=== PATIENT | female | born 1980 | race Caucasian/White ===

== ENCOUNTER → 2020-11-14 17:09 | Outpatient (CLI) | payer OTHER, SELFPAY ==
--- NOTE | ~2020-11-14 | MM_ITS ---
EXAMINATION: MM screening fiona BI w alondra HISTORY: Screening TECHNIQUE: Craniocaudal and mediolateral oblique 3-D tomosynthesis images were obtained and synthetic 2-D images were generated. CAD analysis was submitted and interpreted. COMPARISON: No prior mammogram is available for comparison at this institution. BREAST PARENCHYMAL COMPOSITION: The breasts are heterogeneously dense, which may obscure small masses . FINDINGS: There are bilateral breast asymmetries which are obscured by dense fibroglandular tissue in volving the central and lower aspect of both breasts. There are no suspicious calcifications IMPRESSION: 1. Bilateral breast asymmetries. 2. Additional mammographic views and possible breast ultrasound are recommended. BI-RADS Category 0: Incomplete: Needs additional imaging evaluation. Reviewed, dictated and finalized at location A. [employer]IST IMPRESSION: 1. Bilateral breast asymmetries. 2. Additional mammographic views and possible breast ultrasound are recommended . BI-RADS Category 0: Incomplete: Needs additional imaging evaluation.
== END ==
PROVIDERS: Visit Provider Nurse Practitioner Obstetrics & Gynecology
DX: Z12.31 Encounter for screening mammogram for malignant neoplasm of breast (principal); R92.8 Other abnormal and inconclusive findings on diagnostic imaging of breast
CPT/HCPCS: 77063; 77067

== ENCOUNTER → 2020-12-07 08:20 | Outpatient (CLI) | payer OTHER, SELFPAY ==
--- NOTE | ~2020-12-07 | MMUS_ITS ---
EXAMINATION: MM diagnostic mammo BI, US breast BI complete HISTORY: Follow-up breast asymmetries TECHNIQUE: Additional 3-D tomosynthesis images of the breasts were performed and synthetic 2-D images were generated. CAD analysis was submitted and interpreted. High resolution bilateral breast ultraso und was performed. COMPARISON: 11/14/2020 BREAST PARENCHYMAL COMPOSITION: The breasts are heterogenously dense, which may obscure small masses. FINDINGS: MAMMOGRAPHIC FINDINGS: There are no suspicious masses, calcifications or architectural distortion in the right breast to sug gest malignancy. There is a focal 6 mm mass in the lower inner quadrant of the left breast. ULTRASOUND: Right breast ultrasound: Multiple simple and complicated cysts of the right breast. There is a cluster of microcysts at 1:00, 3 cm from the nipple measuring 6 mm. There is a complicated cyst at 2:00, 5.5 cm from the nipple prisca uring 6 mm. There is an irregular hypoechoic structure at 6:00, 2 cm from the nipple, likely benign i ntramammary lymph node or cluster of microcysts measuring 1.3 cm in conglomeration. At 9:00, 6 cm fro m the nipple, there is an oval hypoechoic mass measuring 7 mm with echogenic hilum and internal vascu larity, likely benign intramammary lymph node. At 10:00, 4 cm from the nipple, there is an oval hypoe choic mass measuring 6 mm with mixed posterior attenuation, parallel orientation, likely complicated cysts. At 10:00, 4 cm from the nipple, there is an oval hypoechoic mass measuring 11 mm maximum dimen arlette, likely intramammary lymph node. Left breast ultrasound: There are multiple simple and complicated cyst of the left breast. At 2:00, 5 cm from the nipple, the re is a 9 mm intramammary lymph node. At 6:00, 4.5 cm from the nipple, there is a complex partially c ystic mass measuring 1.3 cm, likely a benign cluster of microcysts. IMPRESSION: 1. Probable benign bilateral breast masses. 2. Recommend 6 month follow-up bilateral breast ultrasound. BI-RADS category 3, probably benign findings. Reviewed, dictated and finalized at location A. [employer] LOSS PREVENTION IMPRESSION: 1. Probable benign bilateral breast masses. 2. Recommend 6 month follow-up bilateral breast ultrasound. BI-RADS category 3, probably benign findings.
== END ==
PROVIDERS: PCP Internal Medicine; Visit Provider Nurse Practitioner Obstetrics & Gynecology
DX: N60.02 Solitary cyst of left breast (principal); N60.01 Solitary cyst of right breast
CPT/HCPCS: 76641; 77066

== ENCOUNTER 2022-10-15 09:39 | Emergency (ER) | payer OTHER, SELFPAY ==
[2022-10-15 09:40] VITALS: BP 138/98; PULSE 86; RESP 16; TEMP 36.9; O2SAT 98
--- NOTE | 2022-10-15 11:15 | ED.URI ---
HPI - URI/Sore Throat General Chief Complaint: Upper Respiratory Infection Stated Complaint: sore throat Had COVID 13 Days Time Seen by Provider: 10/15/22 11:15 Source: patient, RN notes reviewed and old records reviewed Mode of arrival: ambulatory Limitations: no limitations History of Present Illness HPI Narrative: 42-year-old female presents accompanied by son who is also ill with complaints of sore throat. Patient reports she had COVID 13 days ago patient states her congestion continues her sore throat did go away but has been back for 3 days.Patient denies any present fevers. chils or sweats or any body aches, has taken some Tylenol and Ibuprofen for her symptoms MD elicited complaint: cough, sore throat and nasal congestion Pertinent past history: other (recent COVID) Onset (ago): day(s) (3) Treatments prior to arrival: acetaminophen and ibuprofen Related Data Allergies Allergy/AdvReac Type Severity Reaction Status Date / Time No Known Allergies Allergy Unverified 05/23/15 11:49 Review of Systems Review of Systems: CONSTITUTIONAL: Denies malaise, chills, sweats, or fever. EYES: Denies visual changes, redness, or discharge. ENT: Reports rhinorrhea, congestion, sinus pain,no otalgia and sore throat. CARDIOVASCULAR: Denies chest pain, palpitations, or edema. RESPIRATORY: Reports cough.? Denies dyspnea. GASTROINTESTINAL: Denies abdominal pain, nausea, vomiting, diarrhea SKIN: Denies rash or itching. MUSCULOSKELETAL: Denies myalgia. NEUROLOGIC: Denies headache. All systems reviewed & are unremarkable except as noted in HPI and below PMFSH Past Medical History Medical History (Updated 10/22/22 @ 19:14 by Jesica Yip NP) COVID-08 October 2022 Surgical History Surgical History (Updated 10/22/22 @ 19:15 by Jesica Yip NP) H/O knee surgery H/O LEEP Previous section Social History Social History (Updated 10/22/22 @ 19:16 by Jesica Yip NP) Smoking status: Never smoker Alcohol intake: never Substance use: never Gender identity (if verbalized by the patient): Female Comments At time of signature, agree with nursing past medical, surgical, social and family history. There is no relevant family history pertinent to the presenting complaint Exam Narrative: GENERAL: Well-appearing, well-nourished, and in no acute distress. HEAD: Normocephalic EYES: PERRLA, conjunctivae clear ENT: Nares clear, turbinates edematous and erythematous, clear discharge. Mucous membranes moist. TM pearly salcido with dull light reflex bilaterally; no tragal tenderness. Oropharynx erythematous without lesions. Tonsils red enlarged and without exudate, no drooling, no hoarseness, no trismus, uvula midline. NECK: Supple. No lymphadenopathy CHEST: Clear to auscultation, breath sounds equal. No wheezing, rhonchi, rales, or stridor. No respiratory distress, speaks in full sentences.cough, SAO2 98% on room air HEART: Regular rate and rhythm. No murmur heard. SKIN: Warm, dry, no rash. NEURO: Alert and oriented x3. PSYCH: Normal mood and affect Course Course Emergency Course: Patient is aware of diagnosis, understands and agrees to treatment plan.? Anticipatory guidance given.? Patient agrees to follow-up as directed and is aware of reasons to seek care at the emergency department. Portions of this record may have been created with voice recognition software Level of Care: Express Care Visit Vital Signs Vital signs: Vital Signs Temperature 36.9 C 10/15/22 09:40 Pulse Rate 86 10/15/22 09:40 Respiratory Rate 16 10/15/22 09:40 Blood Pressure 138/98 H 10/15/22 09:40 Pulse Oximetry 98 10/15/22 09:40 Oxygen Delivery Room Air 10/15/22 09:40 Temperature 36.9 C 10/15/22 09:40 Pulse Rate 86 10/15/22 09:40 Respiratory Rate 16 10/15/22 09:40 Blood Pressure 138/98 H 10/15/22 09:40 Pulse Oximetry 98 10/15/22 09:40 Oxygen Delivery Room Air
== END 2022-10-15 11:56 | disposition home or self-care (01) ==
PROVIDERS: Emergency Provider Registered Nurse; PCP Internal Medicine
DX: J02.0 Streptococcal pharyngitis (principal)
CPT/HCPCS: 87081; 99203; G0463

== ENCOUNTER 2023-04-08 09:27 | Outpatient (CLI) | payer OTHER, SELFPAY ==
[2023-04-08 10:20] LABS: Basophils Percent Auto 0.6 % (0.2-1.2); Eosinophils Absolute Auto 0.1 K/mm3 (0-0.3); Eosinophils Percent Auto 1.3 % (0-4.4); Hematocrit 36.4 % (37.0-47.0); Hemoglobin 11.7 g/dL (12.0-15.0); Immature Granulocyte Absolute 0.03 K/mm3 (0.00-0.031); Immature Granulocyte Percent A 0.5 % (0-0.5); Lymphocytes Absolute Auto 1.51 K/mm3 (0.9-3.2); Lymphocytes Percent Auto 24.1 % (18.3-44.2); Mean Corpuscular HGB Conc 32.1 g/dl (32-36); Mean Corpuscular Hemoglobin 27.2 pg (26-34); Mean Corpuscular Volume 84.7 fl (80-100); Mean Platelet Volume 9.8 fl (7.4-10.4); Monocytes Absolute Auto 0.5 K/mm3 (0.1-0.6); Neutrophils Absolute Auto 4.1 K/mm3 (1.3-6.7); Neutrophils Percent Auto 65.5 % (45.5-73.1); Platelet Count Result 226 k/mm3 (150-375); Red Cell Distribution Width 14.7 % (11.5-14.5); White Blood Count 6.3 K/mm3 (4.5-10.0)
== END 2023-04-08 09:28 | disposition home or self-care (01) ==
PROVIDERS: PCP Internal Medicine; Visit Provider Obstetrics & Gynecology
DX: Z01.812 Encounter for preprocedural laboratory examination (principal); N92.0 Excessive and frequent menstruation with regular cycle
CPT/HCPCS: 36415; 85025; 86850; 86900; 86901

== ENCOUNTER 2023-04-10 01:19 | Day surgery (SDC) | payer OTHER, SELFPAY ==
--- NOTE | 2023-04-05 10:01 | PC.NURSE ---
Report to the Outpatient Waiting Room, entrance under the green pavilion located off [facility], at time _1100 on date __04/10/23 . Planned Procedure Time: __1300 . Time changes happen often and if your time is changed the preop area will call you the afternoon before. - You and your visitor will be asked to self-screen and do not enter if you have any COVID symptoms. - A mask is optional within the hospital at this time. Patients may have clear liquids (water, carbonated beverages, clear teas, apple juice) until 3 hours prior to surgery with a maximum of 20 ounces. - No food from midnight until time of surgery - Infants may have breast milk until 4 hours before surgery, infant formula 6 hours prior to surgery. - Children will be allowed to drink immediately following surgery. If applicable, please bring a bottle or sippy cup to assist with drinking. Juice, water, soda, and popsicles are readily available. For infants on formula, please bring formula the day of surgery. Pacifiers are allowed. Take the following medications with a SIP of water the morning of surgery: __NONE DO NOT STOP ANY OF YOUR OTHER PRESCRIPTION MEDICATIONS PRIOR TO SURGERY ?EXCEPT THE FOLLOWING Medications to discontinue per physician ___ALL VITAMINS/SUPPLEMENTS 3 DAYS PRE OP.LAST DOSE 04/06/23 Please no make-up, nail bruneian, hairspray, perfume, deodorant, or body powder the day of surgery. No jewelry (including any body piercings) or valuables the day of surgery, leave them at home. Please take a shower or bath the night before, or the morning of, surgery with an antibacterial soap. Wear comfortable, loose fitting clothing. Children are encouraged to wear pajamas. - Jewelry must be removed prior to entering the operating room. Rings and piercings that are not removed may be cut off. - The hospital will not accept responsibility for valuables. - Please leave all valuables, including medications, at home the day of surgery. If you are going home after surgery, a licensed sweeper driver must drive you home. - NO public transportation without another adult if you receive anesthesia. - We recommend that an adult stay with you for 24 hours following discharge. - We also recommend that you do not drive, make important decision, drink alcoholic beverages, or take any drugs that were not prescribed by your health care provider for at least 24 hours after your discharge time. For Pediatric surgeries, we recommend two adults accompany the child home. Follow any additional instructions given to you from your surgeon. If you or anyone in your household have experienced Covid symptoms in the past week, please notify your surgeon or the nurse liaison at the phone number below for possible testing. Telephone instructions given to __PATIENT and asked if any additional questions and then verbalized understanding. Patient advised to call surgeon office or pre surgery nurse liaison [phone] if any additional questions.
[2023-04-05 10:04] VITALS: BMI 24.8
[2023-04-10] VITALS (14 sets, daily range): BP systolic 87–126; BP diastolic 42–71; PULSE 46–74; RESP 12–16; TEMP 36.3–37.7; O2SAT 96–100
[2023-04-10] MEDS: LACTATED RINGERS 1,000 ML 30 ML IV CONT ×2 (11:35→14:57)
[2023-04-10] MEDS: SCOPOLAMINE 1.5 MG PATCH TRANSDERM (11:36)
[2023-04-10] MEDS: KETOROLAC 15 MG/ML VIAL (*BKC) IV PUSH (11:37)
[2023-04-10] MEDS: ACETAMINOPHEN 500 MG TABLET 1000 MG PO (11:37)
--- NOTE | 2023-04-10 12:10 | WPDANESEPPF ---
Anes - Initial Pre Proc Eval Procedure: Operation Date: 04/10/23 13:00 Proposed Procedures p Robotic Assisted Hysterectomy with Bilateral Salpingectomy - Allan Montano MD Date/Time: 04/10/23 12:10 Surgeon: Allan Montano MD Pre Op Diagnosis: menorrhagia Patient Data Age: 42 Gender: F Height: 1.6 m Weight: 63 kg Last Vital Signs Temp 36.7 C 04/10/23 11:07 Pulse 50 L 04/10/23 11:07 Resp 16 04/10/23 11:07 BP 126/71 04/10/23 11:07 Pulse Ox 100 04/10/23 11:07 O2 Del Method Room Air 04/10/23 11:07 Allergies Allergy/AdvReac Type Severity Reaction Status Date / Time No Known Allergies Allergy Unverified 04/10/23 11:41 Home Medications Medication Instructions Recorded Confirmed Type melatonin 5 mg tablet 5 mg PO HS PRN Insomnia 04/05/23 04/10/23 History vitamin B complex 1 cap PO DAILY 04/05/23 04/10/23 History zinc 50 mg capsule 50 mg PO DAILY 04/05/23 04/10/23 History Patient hx anesthesia problems: none Family hx anesthesia problems: none Results Review: All pre-operative results and documents have been reviewed as part of the pre-operative evaluation. [facility] Past Medical History Medical History COVID-08 October 2022 Surgical History Surgical History H/O knee surgery H/O LEEP Previous section Social History Social History Smoking status: Never smoker Alcohol intake: current Drinks per week: 4 Substance use: never Living arrangements: with family Gender identity (if verbalized by the patient): Female Spiritual care concerns: No Anes - Eval Final PreProcedure Day of Procedure 04/10/23 12:10 Patient weight: normal Heart: regular rate and rhythm Lungs: clear to auscultation Airway: Mallampati scale class II Neurological: alert and oriented Last oral intake: >/= 8 hours ASA classification: II Emergent: no Anesthetic plan: proceed Anesthesia type and monitoring: general ETT and standard monitoring Results Review: All pre-operative results and documents have been reviewed as part of the pre-operative evaluation. Informed Consent: The patient's anesthetic plan and its attendant risks and benefits were discussed with the patient/family/POA. Questions were solicited and answers provided to the satisfaction of the patient/family/POA.
--- NOTE | 2023-04-10 12:22 | WPDHPUPDATE1 ---
History and Physical Update Update Date/Time: 04/10/23 12:22 History and Physical has been reviewed, including an updated exam of the patient. There are NO changes in the patient's condition. Risks, benefits, and alternatives have been discussed and questions answered. Patient agrees to proceed with procedure.
[2023-04-10] MEDS: ceFAZolin 2 GM/D5W 50 ML 2 GM/50 ML BAG IVPB (12:36)
--- NOTE | 2023-04-10 14:33 | W.PM.PROC2 ---
Procedure Note - Detailed Date of Procedure 04/10/23 Pre-op Diagnosis menorrhagia Post-op Diagnosis Same Procedure Performed Robot assisted Total hysterectomy with bilateral salpingectomy. Surgeon Allan Montano MD Anesthesia General Indications heavy vaginal bleeding, pelvic pain Findings normal-appearing uterus, ovaries, and left tube, right tube was partially resected. Some scarring over the posterior cul-de-sac peritoneum. Description of Procedure This patient was taken to the operating room. She was prepped and draped in the dorsal lithotomy position after induction of general anesthesia. The uterine manipulator and Lina cup were placed. This was done with a speculum and tenaculum. The speculum was placed. The cervix was grasped with a tenaculum. The stay sutures were placed at 3 and 9:00 a.m.. The stay sutures of 0 Vicryl were tied to the appropriately Size scope after it was slipped around the cervix.. The tip of the SREEKANTH manipulator was placed in the intrauterine cavity. The cup was slid into place around the cervix and into the fornices. It was locked into place. The sutures were then wrapped around the handle and tied under tension. A 8 mm skin incision was made in the left upper quadrant the abdomen. a 5 mm Visiport trocar was inserted into abdominal cavity and pneumoperitoneum was achieved. A 8 mm supraumbilical incision was made and a 8 mm trocar was inserted into the intrauterine cavity under direct visualization of the scope. an 8 mm incision was made in the right upper quadrant of the abdomen and an 8 mm robotic trocar was placed the inter uterine cavity under direct visualization the scope. An 11 mm trocar was inserted in the right upper quadrant of the abdomen rectal is a cystoscope after an incision was made there as well. The robot was docked. Electronic Orientation of the robot was performed. Bilateral ureteral lysis was performed. This was done from the pelvic brim down to the uterine artery. This was done with careful dissection using sharp and blunt dissection. The fallopian tubes were removed bilaterally. The mesosalpinx around the fallopian tubes were cauterized transected with LigaSure cautery. This was done in a bilateral fashion from the ovary to the uterine cornua. The fallopian tube was transected at the uterine cornu and amputated. The tube was taken out the left lower quadrant trocar site. In a stepwise fashion along the lateral aspects of the uterus the round ligament and broad ligaments were cauterized transected down to the level of the uterine arteries. A bladder flap was created in the bladder was moved distally to the end of the cervix and over the Lina cup. The bilateral uterine arteries were cauterized and transected. Colpotomy was then performed. In a circumferential fashion the vagina was transected using unipolar cautery. The incision was made down on the Lina cup. The uterus and cervix were taken out through the vagina. A pneumo occluder was placed in the vagina. The vaginal cuff was closed with a 0 V lock suture in a running fashion. The pelvis was irrigated with copious amounts antibiotic irrigation. The ureters were again examined and found to be intact and flowing freely under the uterine arteries into the bladder. The bladder was intact. It was examined directly. The vagina was irrigated with Betadine solution after removal of the Pneumo occluder. the trocars were removed after the robot was undocked. The skin was closed with subacute or Dermabond. The patient was taken to recovery room. She was stable condition. Sponge lap and needle counts were correct x2. Estimated Blood Loss 125 Urine Output 800 Drains Yes Packing No Pathology Yes Complications No immediate complications Condition Stable Disposition Floor
[2023-04-10] MEDS: fentaNYL CITRATE INJ (*CRX) 100 MCG/2 ML VIAL 25 MCG IV PUSH ×2 (15:36→16:25)
[2023-04-10] MEDS: DEXTROSE 5%/0.45% SOD CHL 1,000 ML 125 ML IV CONT (17:05)
[2023-04-10] MEDS: KETOROLAC 30 MG/ML VIAL (*BKC) IV PUSH (17:09)
[2023-04-10] MEDS: HYDROcodone/acetaminophen (*CRX) 5-325 MG TABLET 1 TAB PO (19:53)
[2023-04-10] MEDS: ONDANSETRON INJ 4 MG/2 ML VIAL IV PUSH (20:58)
[2023-04-11 05:57] VITALS: BP 89/44; PULSE 60; RESP 18; TEMP 37; O2SAT 98
[2023-04-11] MEDS: IBUPROFEN 600 MG TABLET PO (06:21)
[2023-04-11] MEDS: HYDROcodone/acetaminophen (*CRX) 5-325 MG TABLET 1 TAB PO (06:22)
--- NOTE | 2023-04-11 07:57 | WPDANESPN ---
Anes - Prog Note Post-Op Date/Time: 04/11/23 07:57 Cardiovascular status: normal Respiratory status: normal Airway patency: baseline Mental status: baseline Post-Op hydration status: normal Vital Signs: Last Vital Signs Temp 37.0 C 04/11/23 05:57 Pulse 60 04/11/23 05:57 Resp 18 04/11/23 05:57 BP 89/44 L 04/11/23 05:57 Pulse Ox 98 04/11/23 05:57 O2 Del Method Room Air 04/11/23 05:57 O2 Flow Rate 8 04/10/23 15:15 Pain Score (VAS): 3/10 I/O: Intake & Output 04/10/23 04/10/23 04/11/23 15:59 23:59 07:59 Intake Total 0 1740 500 Output Total 830 325 825 Balance -830 1415 -325 Post-procedural complaints: none Patient Feedback: Patient satisfied with anesthetic care.
[2023-04-11 08:00] VITALS: BP 97/54; PULSE 51; RESP 16; TEMP 37.2; O2SAT 99
--- NOTE | 2023-04-11 08:20 | PM.GYNPNOP ---
STEEL ERECTING PUSHER - A/P Postoperative Procedures: Procedures Operation Date: 04/10/23 13:00 Actual Procedure Side Surgeon p Robotic Assisted Hysterectomy with Bilateral Salpingectomy Bilateral Allan Montano MD Postoperative day: 1 Postoperative status: doing well Postoperative plan: see orders Time Spent With Patient Time: Total time spent is greater than 50% in coordination of care (as documented) at patient's floor/unit and/or counseling patient: Time with patient: less than 15 minutes STEEL ERECTING PUSHER- PN:Subj Post-Op Subjective Date/time seen: 04/11/23 08:20 Subjective: patient reports feeling better, patient has no complaints and pain is well controlled Exam Const: General: healthy appearing, comfortable and no acute distress Resp: Auscultation: clear to auscultation bilaterally, no rales, no rhonchi and no wheezes Cardio: Rate: regular rate Heart sounds: no click, no murmurs and no rubs GI: Inspection: non-distended Auscultation: normal bowel sounds Extrem: General: normal to inspection, no pedal edema and no calf tenderness STEEL ERECTING PUSHER - PN: Obj Data Vital Signs Vital Signs: Vital Signs - 24 hr 04/10/23 11:07 04/10/23 14:47 04/10/23 15:00 Temperature 98.0 F 97.3 F L Pulse Rate 50 L 74 48 L Respiratory Rate 16 12 14 Blood Pressure 126/71 90/52 L 97/53 L Pulse Oximetry 100 100 100 Oxygen Delivery Room Air Simple Face Mask Simple Face Mask Oxygen Flow Rate 8 8 04/10/23 15:15 04/10/23 15:20 04/10/23 15:35 Temperature 97.9 F 98.6 F Pulse Rate 46 L 50 L 57 L Respiratory Rate 16 16 14 Blood Pressure 94/51 L 101/54 L 95/51 L Pulse Oximetry 100 99 98 Oxygen Delivery Simple Face Mask Room Air Room Air Oxygen Flow Rate 8 04/10/23 15:45 04/10/23 15:50 04/10/23 16:00 Temperature 98.5 F Pulse Rate 56 L 52 L 51 L Respiratory Rate 14 12 16 Blood Pressure 99/52 L 106/61 103/65 Pulse Oximetry 97 100 97 Oxygen Delivery Room Air Room Air Room Air Oxygen Flow Rate 04/10/23 16:15 04/10/23 16:25 04/10/23 16:35 Temperature 98.6 F Pulse Rate 52 L 50 L 55 L Respiratory Rate 14 14 16 Blood Pressure 95/58 L 98/55 L 87/42 L Pulse Oximetry 99 96 97 Oxygen Delivery Room Air Room Air Oxygen Flow Rate 04/10/23 16:35 04/10/23 19:45 04/10/23 19:45 Temperature 99.9 F H Pulse Rate 55 L 65 65 Respiratory Rate 16 16 16 Blood Pressure 89/48 L Pulse Oximetry 97 100 100 Oxygen Delivery Room Air Room Air Oxygen Flow Rate 04/10/23 23:25 04/11/23 05:57 04/11/23 05:57 Temperature 98.5 F 98.6 F Pulse Rate 53 L 60 60 Respiratory Rate 16 18 18 Blood Pressure 92/52 L 89/44 L Pulse Oximetry 99 98 98 Oxygen Delivery Room Air Oxygen Flow Rate Intake/Output Intake/Output: Intake & Output 04/08/23 04/09/23 04/10/23 04/11/23 23:59 23:59 23:59 23:59 Intake Total 1740 500 Output Total 1155 825 Balance 585 -325 Meds/Results Medications: Active Medications Generic Name Dose Route Start Last Admin Trade Name Freq PRN Reason Stop Dose Admin Hydrocodone Bitart/Acetaminophen 1 tab 04/10/23 16:31 Hydrocodone/Acetaminophen (*Crx) 10-325 Mg Tablet PO Q3H PRN Pain Rated 6 or Greater Hydrocodone Bitart/Acetaminophen 1 tab 04/10/23 16:31 04/11/23 06:22 Hydrocodone/Acetaminophen (*Crx) 5-325 Mg Tablet PO 1 tab Q3H PRN Administration Pain Rated 5 or Less Dextrose/Sodium Chloride 1,000 mls @ 125 mls/hr 04/10/23 16:31 04/10/23 17:05 Dextrose 5% Sodium Chloride 0.45% IV CONT 125 mls/hr .Q8H MARLEN Administration Ibuprofen 600 mg 04/10/23 16:31 04/11/23 06:21 Ibuprofen 600 Mg Tablet PO 600 mg Q6H PRN Administration Cramping Ketorolac Tromethamine 30 mg 04/10/23 16:31 04/10/23 17:09 Ketorolac 30 Mg/Ml Vial (*Bkc) IV PUSH 04/15/23 16:30 30 mg Q6H PRN Administration Pain Rated 4-6 Naloxone HCl 0.1 mg 04/10/23 16:31 Naloxone Hcl 0.4 Mg/Ml Vial IV PUSH Q2M PRN Respiratory rate less than 10 Ondansetron HCl 4
[2023-04-11 12:10] VITALS: BP 106/58; PULSE 66; RESP 18; TEMP 37.5; O2SAT 99
== END 2023-04-11 12:45 | disposition home or self-care (01) ==
LOC: ANHSURGERY 15:00 → ANHOB2 16:35
PROVIDERS: PCP Internal Medicine; Visit Provider Obstetrics & Gynecology
PROC: (CPT 58571; principal; 2023-04-10 13:00)
DX: N92.0 Excessive and frequent menstruation with regular cycle (principal); R10.2 Pelvic and perineal pain; D25.2 Subserosal leiomyoma of uterus
CPT/HCPCS: 58571; S2900; 36415; 85025; 86850; 86900; 86901; 88307; 99199; A9270; J0330; J0690; J1100; J1170; J1885; J2250; J2370; J2405; J2710; J3010; J7030; J7120